=== PATIENT | male | born 1975 | race Caucasian/White ===

== ENCOUNTER 2023-03-20 12:03 | Emergency (ER) | payer OTHER ==
[~2023-03-20] VITALS: Ht 175.3 cm; Wt 63.6 kg
[2023-03-20 12:09] VITALS: BP 132/78; TEMP 97.5
[2023-03-20] MEDS ORDERED: ONDANSETRON 4MG 2ML VIAL IV ONE (13:30)
[2023-03-20] MEDS ORDERED: fentaNYL 100 MCG/2 ML INJECTION IV ONE (13:30)
[2023-03-20] MEDS ORDERED: NS 1,000 ML IV ONE (13:30)
[2023-03-20] MEDS ORDERED: MORPHINE 2 MG/ML 1ML VIAL IV ONE ×2 (13:45→15:05)
[2023-03-20 13:46] LABS: HEMATOCRIT 45.4 % (42.0-52.0); HEMOGLOBIN 15.5 g/dl (13.5-17.5); MEAN CORPUSCULAR HEMOGLOBIN 32.6 pg (27.0-33.0); MEAN CORPUSCULAR HGB CONC 34.1 g/dl (32.0-36.5); MEAN CORPUSCULAR VOLUME 95.6 fl (80.0-96.0); PLATELET COUNT, AUTOMATED 227 10^3/uL (150-450); RED BLOOD COUNT 4.75 10^6/uL (4.30-6.10); WHITE BLOOD COUNT 17.2 10^3/uL (4.0-10.0)
[2023-03-20 13:49] VITALS: O2SAT 100
[2023-03-20 13:59] LABS: INR 0.94; PROTHROMBIN TIME 12.8 SECONDS (12.5-14.5)
[2023-03-20 14:00] LABS: PARTIAL THROMBOPLASTIN TIME 26.6 SECONDS (24.8-34.2)
[2023-03-20] MEDS ORDERED: ONDA4TAB6 PO (15:30)
[2023-03-20] MEDS ORDERED: PERC5TAB12 PO (15:30)
== END 2023-03-20 15:49 | disposition home or self-care (01) ==
LOC: M ED 12:03 → EDBD 12:03 → M ED 15:49
DX: S82.122A Displaced fracture of lateral condyle of left tibia, initial encounter for closed fracture (principal); W19.XXXA Unspecified fall, initial encounter; Y92.89 Other specified places as the place of occurrence of the external cause; Y93.89 Activity, other specified; Y99.8 Other external cause status; F17.200 Nicotine dependence, unspecified, uncomplicated
CPT/HCPCS: 73552; 73564; 73590; 73700; 85027; 85610; 85730; 96374; 96375; 96376; 99283; J2405